=== PATIENT | female | born 1970 | race Asian ===

== ENCOUNTER 2022-06-16 16:41 | Emergency (ER) | payer BC, SELFPAY ==
[2022-06-16 17:15] VITALS: BMI 20.7
[2022-06-16 17:19] VITALS: BP 115/72; PULSE 68; RESP 18; TEMP 36.7; O2SAT 100
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
[2022-06-16] MEDS: HYDROcodone-acetaminophen 7.5-325 mg Tablet 1 TAB PO (17:48)
== END 2022-06-16 18:47 | disposition home or self-care (01) ==
PROVIDERS: Emergency Provider Nurse Practitioner Family
DX: S70.02XA Contusion of left hip, initial encounter (principal); S49.92XA Unspecified injury of left shoulder and upper arm, initial encounter; S22.42XA Multiple fractures of ribs, left side, initial encounter for closed fracture; V89.2XXA Person injured in unspecified motor-vehicle accident, traffic, initial encounter
CPT/HCPCS: 71101; 73030; 73502; 99283